=== PATIENT | female | born 1945 | race Caucasian/White ===

== ENCOUNTER → 2017-12-29 | Day surgery (SDC) | payer MEDICARE ==
[~2017-12-29] MED LIST: CLOPIDOGREL75 MG PO; DIAZEPAM5 MG/1 M1 PO; DYMISTA NASAL S23 GM; FLUOXETINE HCL10 M1 PO; METOPROLOL SUCC50 MG PO; PLAVIX75 MG PO; SYNTHROID100 MCG PO; VITAMIN D 3 PO
[2017-12-29 13:44] LABS: BASOPHILS # (AUTO) 0.1 (0.0-0.1); BASOPHILS % 0.7 % (0.0-1.0); EOSINOPHILS # (AUTO) 0.1 (0.0-0.4); EOSINOPHILS % 1.2 % (0.0-6.0); HEMATOCRIT 39.5 % (34.2-44.1); HEMOGLOBIN 13.3 g/dL (12.0-16.0); LYMPHOCYTES # (AUTO) 2.6 (1.0-3.2); LYMPHOCYTES % 37.2 % (18.0-39.1); MEAN CORPUSCULAR HEMOGLOBIN 30.6 pg (28-32); MEAN CORPUSCULAR HGB CONC 33.7 g/dL (31-35); MONOCYTES # (AUTO) 0.4 (0.2-0.8); MONOCYTES % 6.4 % (4.4-11.3); NEUTROPHILS # (AUTO) 3.7 (2.1-6.9); NEUTROPHILS % 54.4 % (38.7-80.0); PLATELET COUNT 313 x10e3/uL (140-360); RED BLOOD COUNT 4.34 x10e6/uL (3.6-5.1); RED CELL DISTRIBUTION WIDTH 12.7 % (11.7-14.4)
[2017-12-29 14:09] LABS: ANION GAP 15.9 mmol/L (8-16); BLOOD UREA NITROGEN 13 mg/dL (7-26); BUN/CREATININE RATIO 18 (6-25); CALCIUM 9.8 mg/dL (8.4-10.2); CARBON DIOXIDE 27 mmol/L (22-29); CHLORIDE 100 mmol/L (98-107); CREATININE, SERUM 0.72 mg/dL (0.57-1.11); EST GLOMERULAR FILTRATION RATE > 60 ML/MIN (60-); GLUCOSE 99 mg/dL (74-118); POTASSIUM 3.9 mmol/L (3.5-5.1); SODIUM 139 mmol/L (136-145)
--- NOTE | 2017-12-29 14:16 | Diagnostic Imaging Report ---
PROCEDURE: Frontal and lateral views of the chest. COMPARISON: None. INDICATIONS: PRE-OP KIDNEY STONE FINDINGS: Lines/tubes: None. Lungs: There is no evidence of pneumonia or pulmonary edema. Biapical scarring. Mild, nonspecific basilar opacities may represent atelectasis. Pleura: There is no pleural effusion or pneumothorax. Heart and mediastinum: The heart and the mediastinum are normal. Bones: No acute bony abnormality. IMPRESSION: 1. No acute cardiopulmonary disease. Dictated by: Justice Castañeda M.D. on 12/29/2017 at 14:22 Electronically approved by: Justice Castañeda M.D. on 12/29/2017 at 14:22
--- OUTSIDE RECORDS SUMMARY | 2018-02-17 02:01 | XMS REPORT | Summary of Care ---
Author Organization Unknown Address Unknown Phone Unavailable Encounter [facility] Nehemias(VENICE) [id number] Date(s): 10/04/13 - 10/04/13 [facility] [address] [place] [address] Discharge Disposition: Home Physician Attending: Tristan Costa MD Physician_Referring: Physician, Non Associated MD Reason for Visit NEW PT(COLONOSCOPY) REFERED BY DR MÁRQUEZ [phone] Vital Signs Most recent to 1 oldest [Reference Range]: Height 160.02 cm (10/04/13 1:01 PM) Temperature Oral 98.4 DegF [96.4-99.1 DegF] (10/04/13 1:01 PM) Systolic Blood 128 mmHg Pressure [90-140 (10/04/13 1:01 PM) mmHg] Diastolic Blood 68 mmHg Pressure [60-90 (10/04/13 1:01 PM) mmHg] Respiratory Rate 16 BRMIN [14-20 BRMIN] (10/04/13 1:01 PM) Peripheral Pulse 62 bpm Rate [60-100 bpm] (10/04/13 1:01 PM) Weight 80.909 kg (10/04/13 1:01 PM) Body Mass Index 31.6 m2 (10/04/13 1:01 PM) Problem List Condition Effective Dates Status Health Status Informant Anxiety(Confirmed) Resolved Asthma(Confirmed) Resolved Osteoporosis(Confirm Resolved ed) Allergies, Adverse Reactions, Alerts Substance Reaction Severity Status Compazine all "zines" Active morphine Active penicillins Active sulfa drugs Active Thorazine Active Medications Anusol-HC 2.5% rectal cream with applicator 1 appl, MA, BID, # 30 gm, 0 Refill(s), Pharmacy: [facility] [id number] Start Date: 10/04/13 Status: Ordered cloNIDine 0 Refill(s) Start Date: 10/04/13 Status: Ordered clopidogrel 75 mg oral tablet 0 Refill(s) Start Date: 10/04/13 Status: Ordered GoLYTELY oral powder for reconstitution 240 ml, PO, Q10Min, # 1 ea, 0 Refill(s), Pharmacy: [facility] [id number] Start Date: 10/04/13 Status: Ordered Lipitor 40 mg oral tablet 0 Refill(s) Start Date: 10/04/13 Status: Ordered losartan 50 mg oral tablet 0 Refill(s) Start Date: 10/04/13 Status: Ordered metoprolol 25 mg oral tablet, extended release 0 Refill(s) Start Date: 10/04/13 Status: Ordered pantoprazole 40 mg oral enteric coated tablet 0 Refill(s) Start Date: 10/04/13 Status: Ordered PROzac 0 Refill(s) Start Date: 10/04/13 Status: Ordered Restasis 0 Refill(s) Start Date: 10/04/13 Status: Ordered Synthroid 112 mcg (0.112 mg) oral tablet 0 Refill(s) Start Date: 10/04/13 Status: Ordered Medications Administered During Your Visit No data available for this section Immunizations No data available for this section Procedures Procedure Type Body Site Date of Procedure Related Diagnosis Carotid endarterectomy 2007 Social History Social History Type Response Smoking Status Exposure to Tobacco Smoke None, Cigarette Smoking Last 365 Days No, Reg Smoking Cessation Counseling No, Never smoker
--- OUTSIDE RECORDS SUMMARY | 2018-02-17 02:01 | XMS REPORT | Summary of Care ---
Author Organization Unknown Address Unknown Phone Unavailable Encounter [facility] Rogersntr_randall(FIN) [id number] Date(s): 11/16/13 - 11/16/[address] Discharge Disposition: Home Physician Attending: David Rogers MD Physician Admitting: David Rogers MD Reason for Visit BACK PAIN Problem List Condition Effective Dates Status Health Status Informant Anxiety(Confirmed) Resolved Asthma(Confirmed) Resolved Osteoporosis(Confirm Resolved ed) Allergies, Adverse Reactions, Alerts Substance Reaction Severity Status Compazine all "zines" Active morphine Active penicillins Active sulfa drugs Active Thorazine Active Medications No data available for this section Medications Administered During Your Visit No data available for this section Immunizations No data available for this section Social History Social History Type Response Smoking Status Exposure to Tobacco Smoke None, Cigarette Smoking Last 365 Days No, Reg Smoking Cessation Counseling No, Never smoker
--- OUTSIDE RECORDS SUMMARY | 2018-02-17 02:01 | XMS REPORT | Summary of Care ---
Author Author CHRISTI Daniels, LASHONDA Organization Unknown Address Unknown Phone Unavailable Care Team Providers Care Seam Finisher Name Role Phone CHRISTI Daniels, LASHONDA Unavailable Unavailable ANGELICA Daniels, RACHEL Unavailable Unavailable WILLI ALDANA, ERASTO WEBB Unavailable Unavailable ANGELICA ALDANA MA, RACHEL Christina Unavailable Unavailable Unavailable Unavailable Functional Status Name Dates Details Functional status health issues are not documented Status: Name Dates Details Cognitive status health issues are not documented Status: Problems Name Dates Details Left knee pain (719.46, M25.562) Status: Active Right knee pain (719.46, M25.561) Status: Active Osteoarthritis of right knee (715.96, M17.11) Status: Active Medications Name Dates Details Promethazine HCl - 12.5 MG Oral Tablet TAKE 1 TABLET EVERY 8 HOURS NEEDED. Quantity: 10 ANGELICA Daniels, RACHEL * Start : 13-Aug-2017 Active Metoprolol Tartrate TABS * Refills: 0 Active Plavix 75 MG Oral Tablet * Refills: 0 Active Thyroid 100 MG CAPS * Refills: 0 Active Allergies and Adverse Reactions Name Dates Details Cardizem (Allergy) Status: Active Penicillins (Allergy) Status: Active Past Medical History Name Dates Details History of arthritis (V13.4, Z87.39) Status: Resolved History of asthma (V12.69, Z87.09) Status: Resolved History of back pain (V13.59, Z87.39) Status: Resolved History of Calcium kidney stones (592.0, N20.0) Status: Resolved History of gout (V12.29, Z87.39) Status: Resolved History of hay fever (V12.69, Z87.09) Status: Resolved History of hepatitis A virus infection (V12.09, Z86.19) Status: Resolved History of hepatitis B virus infection (V12.09, Z86.19) Status: Resolved History of hypothyroidism (V12.29, Z86.39) Status: Resolved History of osteoporosis (V13.59, Z87.39) Status: Resolved History of pneumonia (V12.61, Z87.01) Status: Resolved History of rheumatoid arthritis (V13.4, Z87.39) Status: Resolved Procedures Procedure Dates Details Procedures not documented Immunization Name Dates Details Immunizations not documented Family History Name Dates Details Family history of diabetes mellitus (V18.0, Z83.3) Comments: Other Status: Active Family history of Heart trouble (429.9, I51.9) Comments: Other Status: Active Family history of rheumatoid arthritis (V17.7, Z82.61) Comments: Other Status: Active Social History Name Dates Details - Status: Name Dates Details Never smoker Vital Signs Date Test Result Details [id number] Height 62 in Status: Body Mass Index Calculated 29.08 kg/m2 Status: Body Surface Area Calculated 1.73 m2 Status: Weight 159 lb Status: [id number] Height 62 in Status: Body Mass Index Calculated 29.08 kg/m2 Status: Body Surface Area Calculated 1.73 m2 Status: Weight 159 lb Status: Results Date Description Value Details :38 [U] XRAY KNEE 4 OR MORE VWS RIGHT 59363 XR KNEE 4 OR MORE VWS RIGHT Images acquired, not reported on this accession number. Plan of Care Name Dates Details Planned Observations Planned Goals not documented Interventions Provided Labs/Procedures/Imaging* [U] XRAY KNEE 4 OR MORE VWS RIGHT 53725; Done: 08 Nov 2017 Supplies* DME; To Be Done: 08 Nov 2017 Plan* Quad Strengthening * Home exercise program * Patient Education/Instructions: * NSAIDS and ICE application for continued pain and swelling. * DME Orders: * Knee Brace * Medial offloading brace to allow joint space opening as medial ligaments still loose and correctable varus. * Orders: * Physical Therapy * Diagnosis: R knee OA and rehabilitation of the R knee. * Rehabilitation Services: evaluate and treat patient as needed and create home exercise program. * Exercise/Treatment: strengthening/PRE. * Frequency: 2 times per week, for 6 weeks. Please send progress report. * I hereby certify that the services indicated above are medically necessary. * Follow Up: * Return to the clinic in 3 months or as needed. * Patient does not want to take NSAIDs as she believes in natural medications/ herbs * PT Rx given for strengthening x 6 weeks with HEP * Nonimpact aerobic exercises * Medial offloading brace ordered for her varus knee * Injection of knee refused * Recommended cane/walker to continue to prevent falls Instructions Name Dates Details Instructions not documented Encounters Appointment; RACHEL DOMINGUEZ M.D. Encounter Diagnosis: Problem not documented On: 13-Aug-2017 12:00 Appointment; LASHONDA BARRAZA M.D. Encounter Diagnosis: Problem not documented On: 08-Nov-2017 13:00
--- OUTSIDE RECORDS SUMMARY | 2018-02-17 02:01 | XMS REPORT | Clinical Summary ---
Author Author [facility] Organization [facility] Address Unknown Phone Unavailable Care Team Providers Care Compound Coating Machine Offbearer Name Role Phone Sheri Rodriguez MD PCP Allergies Active Allergy Reactions Severity Noted Date Comments Diltiazem Hcl 10/10/2015 Codeine 07/15/2015 Prochlorperazine 10/10/2015 Droperidol 10/10/2015 Morphine 07/15/2015 Penicillins 07/15/2015 Current Medications Prescription Sig. Disp. Refills Start End Date Status Date metoprolol succinate XL Take 50 mg by mouth 3 06/22/19 Active (TOPROL-XL) 50 MG 24 hr daily. 16 tablet pantoprazole (PROTONIX) Take 40 mg by mouth Active 40 MG EC tablet daily. cycloSPORINE (RESTASIS) 1 drop 2 (two) times a Active 0.05 % ophthalmic day. emulsion losartan (COZAAR) 25 MG Take 25 mg by mouth Active tablet daily. metoprolol tartrate TK 1 T PO BID 6 10/14/19 Active (LOPRESSOR) 25 mg tablet 17 dextromethorphan-quinidin Take 1 capsule by mouth 13 capsule 0 Active e (NUEDEXTA) 20-10 mg daily. 17 capsule levothyroxine (SYNTHROID, TAKE 1 TABLET(100 MCG) BY 90 tablet 0 Active LEVOXYL) 100 mcg MOUTH EVERY MORNING 18 tabletIndications: Acquired hypothyroidism levothyroxine (SYNTHROID, TAKE 1 TABLET(100 MCG) BY 90 tablet 0 Active LEVOXYL) 100 mcg MOUTH EVERY MORNING 18 tabletIndications: Acquired hypothyroidism clopidogrel (PLAVIX) 75 TAKE 1 TABLET BY MOUTH 90 tablet 0 01/25/20 Active mg tablet DAILY 18 levothyroxine (SYNTHROID, Take 1 tablet (100 mcg 90 tablet 3 06/19/08/14/19 Discontin LEVOXYL) 100 mcg total) by mouth every 17 18 ued tabletIndications: morning. Acquired hypothyroidism clopidogrel (PLAVIX) 75 TAKE 1 TABLET BY MOUTH 90 tablet 0 10/19/19 01/28/20 Discontin mg tablet DAILY 17 17 ued FLUoxetine (PROzac) 10 MG Take 1 capsule (10 mg 30 capsule 2 12/18/19 12/18/19 capsuleIndications: total) by mouth daily. 17 18 Anxiety clopidogrel (PLAVIX) 75 TAKE 1 TABLET BY MOUTH 90 tablet 0 01/28/20 05/06/20 Discontin mg tablet DAILY 17 17 ued clopidogrel (PLAVIX) 75 TAKE 1 TABLET BY MOUTH 90 tablet 0 05/06/20 09/28/19 Discontin mg tablet DAILY 17 18 ued clopidogrel (PLAVIX) 75 TAKE 1 TABLET BY MOUTH 90 tablet 0 09/28/19 01/25/20 Discontin mg tablet DAILY 18 18 ued Hospital, Clinic, or Ordered Dose Route Frequency Start End Date Status Other Facility Date Administered Medication denosumab (PROLIA) 60 mg subQ every 6 months 06/02/19 Active syringe 60 mgIndications: 17 Osteoporosis Active Problems Problem Noted Date Pseudobulbar affect 10/28/2016 Carotid occlusion, bilateral 10/28/2016 Vitamin D deficiency 03/03/2016 Osteoarthritis 03/03/2016 Herpes zoster 07/15/2015 Hypothyroidism 07/15/2015 Hyperlipidemia 07/15/2015 Essential hypertension 07/15/2015 Raynaud's phenomenon 07/15/2015 GERD (gastroesophageal reflux disease) 07/15/2015 Joint pain 07/15/2015 Foot pain 07/15/2015 Fatigue 07/15/2015 Vocal fatigue 07/15/2015 Dysphagia 07/15/2015 Kidney stone 11/08/2012 Osteoporosis 11/08/2012 Chest pain 11/08/2012 Encounters Date Type Specialty Care Team Description 01/24/2018 Refill Neurology Arturo Lopez MD 09/27/2017 Refill Neurology Arturo Lopez MD 08/13/2017 Refill Endocrinology Karuna Jean MD Acquired hypothyroidism 07/27/2017 Telephone Neurology Arturo Lopez MD 07/12/2017 Refill Endocrinology Karuna Jean MD Acquired hypothyroidism 05/06/2017 Refill Neurology Arturo Lopez MD 02/08/2017 Telephone Neurology Arturo Lopez MD 01/28/2017 Telephone Neurology Arturo Lopez MD 01/27/2017 Refill Neurology Arturo Lopez MD 01/21/2017 Telephone Endocrinology Adriana Biswas MA 01/19/2017 Telephone Endocrinology Adriana Biswas MA after 12/28/2016 Immunizations Name Dates Previously Given Next Due FLUZONE HIGH-DOSE PF 03/05/2017 Influenza, Unspecified 05/17/2014, 03/09/2014 Pneumococcal Conjugate 05/17/2014 13-Valent Pneumococcal 05/17/2004 Polysaccharide Zoster 09/05/2013 Family History Medical History Relation Name Comments Cancer Father Diabetes Father Heart failure Father Hypertension Father Stroke Father No Known Problems Mother Diabetes Paternal Grandmother Relation Name Status Comments Father Colon cancer Mother (Age 94) Paternal Grandmother Social History Tobacco Use Types Packs/Day Years Used Date Never Smoker Alcohol Use Drinks/Week oz/Week Comments Yes ocasssional Sex Assigned at Date Recorded Not on file Last Filed Vital Signs Not on file Plan of Treatment Health Maintenance Due Date Last Done Comments BREAST CANCER SCREENING 1993 SHINGRIX VACCINE (#1) 1993 INFLUENZA VACCINE 12/15/2017 03/05/2017, 05/17/2014, 03/09/2014 COLON CANCER SCREENING 07/29/2018 07/30/2015 PNEUMOCOCCAL Completed 05/17/2004 POLYSACCHARIDE VACCINE AGE 65 AND OVER ZOSTER VACCINE Completed 09/05/2013 PNEUMOCOCCAL-13 Completed 05/17/2014 Results Not on fileafter 12/28/2016 Insurance Payer Benefit Subscriber ID Type Phone Address Plan / Group MEDICARE MEDICARE xxxxxxxxxx Medicare [place], [place] PART A AND B AARP AARP xxxxxxxxx Commercial SUPPLEMENT
--- OUTSIDE RECORDS SUMMARY | 2018-02-17 02:01 | XMS REPORT | Summary of Care ---
Author Author [facility] Organization [facility] Address Unknown Phone Unavailable Encounter [facility] Nehemias(FIN) [id number] Date(s): 09/11/15 - 09/11/15 [facility] [address] [place], [place] [id number]- Discharge Disposition: Home Attending Physician: David Rogers MD Admitting Physician: David Rogers MD Vital Signs No data available for this section Problem List Condition Effective Dates Status Health Status Informant Anxiety(Confirmed) Resolved Asthma(Confirmed) Resolved Benign essential 02/11/12 Active hypertension1 Hypercalcemia2 02/18/12 Active Hyperlipidemia3 02/11/12 Active Hypothyroidism4 12/07/11 Active Impaired glucose 02/11/12 Active tolerance5 Osteoporosis6 02/11/12 Active Vitamin D 12/07/11 Active deficiency7 1Data migrated from [employer] on 10/16/14. 2Data migrated from [employer] on 10/16/14. 3Data migrated from [employer] on 10/16/14. 4Data migrated from [employer] on 10/16/14. 5Data migrated from [employer] on 10/16/14. 6Data migrated from [employer] on 10/16/14. 7Data migrated from [employer] on 10/16/14. Allergies, Adverse Reactions, Alerts Substance Reaction Severity Status codeine1 Active Compazine all "zines" Active diltiazem2 Active morphine3 Active penicillins4 Active sulfa drugs5 Active Thorazine Active 1Data migrated from [employer] on 07/17/15. Originally documented as CODEINE. 2Data migrated from [employer] on 09/13/14. Originally documented as CARDIZEM. 3Data migrated from [employer] on 09/13/14. Originally documented as MORPHINE. 4Data migrated from [employer] on 12/13/14. Originally documented as PCN. 5Data migrated from [employer] on 12/13/14. Originally documented as SULFA. Medications No data available for this section Results No data available for this section Immunizations No data available for this section Procedures Procedure Date Related Diagnosis Body Site Carotid endarterectomy 2007 Social History Social History Type Response Smoking Status Exposure to Tobacco Smoke None; Cigarette Smoking Last 365 Days No; Reg Smoking Cessation Counseling No; Never smoker Assessment and Plan No data available for this section
== END | disposition home or self-care (01) ==
LOC: OR 12:27
PROVIDERS: ATTEND Urology
DX: N20.0 Calculus of kidney (principal); Z88.6 Allergy status to analgesic agent; Z88.0 Allergy status to penicillin; Z88.2 Allergy status to sulfonamides; Z88.8 Allergy status to other drugs, medicaments and biological substances; Z53.09 Procedure and treatment not carried out because of other contraindication
CPT/HCPCS: 36415; 71046; 80048; 85025; 93005

== ENCOUNTER → 2018-01-13 | Outpatient (CLI) | payer MEDICARE ==
[~2018-01-13] MED LIST changes: +IOPAMIDOL 300MG/ML 50ML INFUS..BTL IV ONE
--- NOTE | 2018-01-13 12:40 | Diagnostic Imaging Report ---
Exam: Abdominal film Clinical History: Left ureteral calculus Comparison: None. DISCUSSION: Frontal view of the abdomen shows a nonobstructive bowel gas pattern with marked amount of retained stool which obscures the renal shadows. .There are no dilated, air-filled loops of bowel. No calcifications project over the renal shadows, although visualization is limited. 3 rounded radiopaque densities ranging in size from 2 mm to 4.3 mm project over the right SI joint. No radiopaque densities project over the expected course of the ureters or bladder. No acute bone abnormality. IMPRESSION: 1. Nonobstructive bowel gas pattern with large amount of retained stool, which obscures the renal shadows. 2. No definite calcifications project over the renal shadows or expected course of ureters. 3. 3 rounded radiopaque densities projecting over the right SI joint are too inferior and too lateral to the expected location of the ureter, and likely represent phleboliths in the gonadal vein.. The staff physician below has personally reviewed this exam on the date of dictation. Signed by: Dr. Jovani Rizzo M.D. on 01/13/2018 12:37 PM
== END ==
LOC: OR 10:23 → RAD 10:23 → EDSTATUS 12:30
PROVIDERS: ATTEND Urology
DX: N20.1 Calculus of ureter (principal)
CPT/HCPCS: 74018